=== PATIENT | female | born 1935 | race Caucasian/White ===

== ENCOUNTER 2018-02-02 08:47 | Emergency (ER) | payer MEDICARE, OTHER ==
[~2018-02-02] VITALS: Ht 165.1 cm; Wt 83.7 kg
[~2018-02-02 08:47] MED LIST: ACETAMINOPHEN650 M5 PO; ADULT LOW DOSE81 MG PO; AMLODIPINE BESYL5 M1 PO; APAP650 PO; ARIXTRA SUBQ; ASPIRIN EC325 M1 PO; ASPIRIN325; B12 IJ; B12INJ IM; CALCIUM + VITA1 EACH PO; CALCIUM 600 +1 EA11 PO; CARVEDILOL3.125 MG PO; CEFPODOXIME PR100 MG PO; CENTRUM SILVER1 EAC3 PO; CEPHALEXIN 500500 M3 PO; CIPROFLOXACIN500 M1 PO; CLEOCIN HCL150 MG PO; CO Q-10100 MG PO; COLACE100 MG PO; CRESTOR10 MG PO; DEMADEX20 MG PO; DEPO-MEDRO80 MG/1 ML IM; DIOVAN; DIOVAN 80 MG TA80 M1 PO; DIOVAN40 MG PO; DOXYCYCLINE 10100 MG PO; ELEMENTAL CALC600 MG PO; FISH OIL + VIT1 EACH PO; FISH OIL 1,0001 EAC5 PO; FISHOIL; GABAPENTIN 100100 MG PO; GLUCOPHAGE1000 MG PO; GLUCOSAMINE &1 EACH PO; HUMALOG100 UNIT/1 SQ; KEFLEX500 MG PO; LANTUS INJECTION; LANTUS SUBQ; LASIX 20 MG TAB20 MG PO; LASIX 40 MG TAB40 M1 GT; LASIX 40 MG TAB40 MG PO; LIDODERM 5%1 PATC1 TOP; MACRODANTIN100 MG PO; MAGNESIUM OXID400 MG PO; MAGNESIUM250 M1 PO; MAGOX 400400 MG PO; MAXZIDE 75-501 EACH PO; MECLIZINE HCL25 M1 PO; METOPROLOL SUCC25 M1 PO; METROGEL-VAGINA70 GM VG; METROGEL55 GM TOP; METROGEL60 GM TOP; METROGEL60 GM TP; MIRALAX255 GM PO; NEPHROCAPS SOFT1 CAP PO; NEURONTIN 300300 M1 PO; NEXIUM40 MG PO; NITROQUICK0.4 MG SL; NITROSTAT0.4 MG SUBLING; NORVASC5 MG PO; NOVOLOG100 UNIT/1 SUBQ; NYAMYC15 GM TOP; ORACEA40 MG PO; OXYCODONE HCL15 MG PO; OXYIR 5 MG CAPSU5 M1 PO; PERCOCET 5-3251 EACH PO; PLAVIX 75 MG TA75 M1; PLAVIX 75 MG TA75 M1 PO; PLAVIX 75 MG TA75 MG PO; POTASSIUM; POTASSIUM20 PO; PROPRANOLOL; PROTONIX40 M2 PO; PYRIDIUM200 MG PO; TOPROL XL25 MG PO; TRICOR145 MG PO; ULTRAM 50MG TAB50 MG PO; VITAMIN D1000 UNI1 PO; VITAMIN E1000 UNI3 PO; VITAMINC500 PO; ZETIA10 MG; ZETIA10 MG PO
[2018-02-02] MEDS ORDERED: ASPIRIN325 PO (09:03)
[2018-02-02] MEDS ORDERED: ORACEA40 MG PO (09:03)
[2018-02-02] MEDS ORDERED: TYLENOL325 MG PO (09:04)
[2018-02-02 09:21] LABS: URINE BILIRUBIN NEGATIVE (Negative); URINE BLOOD NEGATIVE (Negative); URINE CLARITY CLEAR; URINE COLOR YELLOW; URINE GLUCOSE-RANDOM NEGATIVE (Negative); URINE KETONES NEGATIVE (Negative); URINE LEUKOCYTES-REFLEX 1+ (Negative); URINE NITRITE-REFLEX NEGATIVE (Negative); URINE PROTEIN 2+ (Negative); URINE SPECIFIC GRAVITY 1.025 (1.005-1.030); URINE UROBILINOGEN 0.2 E.U./dl (0.2-1.0)
[2018-02-02 09:21] LABS: ABSOLUTE EOSINOPHILS 0.2 thou/uL (0.0-0.7); ABSOLUTE LYMPHOCYTES 1.3 thou/uL (0.8-5.3); ABSOLUTE MONOCYTES 0.5 thou/uL (0.0-1.2); ABSOLUTE NEUTROPHILS 3.7 thou/uL (1.6-8.1); BASOPHILS 0.8 %; EOSINOPHILS 2.7 %; HEMATOCRIT 42.7 % (37.0-47.0); HEMOGLOBIN 14.2 gm/dL (12.0-15.0); LYMPHOCYTES 23.2 %; MCH 29.2 pg (26.0-34.0); MCHC 33.1 g/dL (28.0-37.0); MCV 88.1 fL (80.0-100.0); MONOCYTES 8.7 %; MPV 8.1 fl. (7.2-11.1); NUCLEATED RBCS 0 /100WBC; PLATELET COUNT* 219 thou/uL (150-400); POLYS 64.6 %; RBC 4.85 mil/uL (4.20-5.00); RDW-CV 14.8 % (10.5-14.5); WBC 5.8 thou/uL (4.0-11.0)
[2018-02-02 09:34] LABS: ANION GAP 8 mmol/L (7-16); BUN 15 mg/dL (7-18); CALCIUM 10.1 mg/dL (8.5-10.1); CHLORIDE 107 mmol/L (98-107); CO2 27 mmol/L (21-32); CREATININE 0.9 mg/dL (0.6-1.3); GLUCOSE 110 mg/dL (70-99); POTASSIUM 4.1 mmol/L (3.5-5.1); SODIUM 142 mmol/L (136-145)
[2018-02-02 09:35] LABS: SQUAMOUS NONE SEEN /LPF (0-3)
[2018-02-02 09:36] LABS: BACTERIA-REFLEX None Seen /HPF (None Seen); CASTS None Seen /LPF (None Seen); MUCUS None Seen strn/LPF (None Seen); URINE RBC None Seen /HPF (0-2); URINE WBC-REFLEX None Seen /HPF (0-5)
[2018-02-02 09:37] LABS: CRYSTALS None Seen /LPF (None Seen)
[2018-02-02 09:41] LABS: ALBUMIN 3.6 g/dL (3.4-5.0); ALKALINE PHOSPHATASE 93 U/L (46-116); LIPASE 87 U/L (73-393); SGOT 31 U/L (15-37); SGPT 26 U/L (30-65); TOTAL BILIRUBIN 0.6 mg/dL (<0.1-1.0); TOTAL PROTEIN 6.5 g/dL (6.4-8.2); TROPONIN-I LEVEL <0.06 ng/mL (<0.06)
[2018-02-02] MEDS ORDERED: HYDROCODONE-AP1 EAC6 PO (12:16)
[2018-02-02] MEDS ORDERED: KEFLEX500 M1 PO (12:16)
[2018-02-02 12:31] VITALS: BP 164/66
--- NOTE | 2018-02-04 11:10 | EKG ---
[place] [address] ELECTROCARDIOGRAM REPORT Name: DORIAN NEGRETE Room: [facility]#: [id number] Admission: 02/02/18 Attend Phys: Discharge: 02/02/18 Date of : 39 Report #: [id number] THIS REPORT FOR: //name// [facility] ED Test Date: 2018-02-02 Test Time: 09:15:21 Pat Name: DORIAN NEGRETE Department: Room: Gender: F Coal Passer: Truong DICKINSON : 1935 Requested By: Darryn Quevedo Order Number: [id number] MD: Jaylen Beck Measurements Intervals [place] Rate: 50 P: -3 AK: 247 QRS: -46 QRSD: 119 T: 38 QT: 478 QTc: 436 Interpretive Statements Sinus rhythm Prolonged AK interval Left anterior fascicular block Left ventricular hypertrophy Anterior infarct, old Compared to ECG 04/27/2016 11:07:00 First degree AV block now present Left anterior fascicular block now present Early repolarization no longer present Myocardial infarct finding still present Electronically Signed On 02-04-2018 11:09:48 COMMUNITY HEALTH PROGRAM REPRESENTATIVE by Jaylen Beck [email or web address] <ELECTRONICALLY SIGNED> By: Jaylen Beck MD, FACC 02/04/18 1109 4 4 Jaylen Beck MD, FACC /EPI
== END 2018-02-02 12:31 | disposition home or self-care (01) ==
LOC: M.ERS 08:47
PROVIDERS: Emergency Medicine Emergency Medical Services
DX: M54.5 Low back pain (principal); Z88.5 Allergy status to narcotic agent; Z88.2 Allergy status to sulfonamides; Z88.8 Allergy status to other drugs, medicaments and biological substances; Z90.49 Acquired absence of other specified parts of digestive tract; Z90.710 Acquired absence of both cervix and uterus; Z86.73 Personal history of transient ischemic attack (TIA), and cerebral infarction without residual deficits

== ENCOUNTER 2019-03-19 11:45 | Inpatient (IN) | payer MEDICARE, OTHER ==
[~2019-03-19] VITALS: Ht 152.4 cm; Wt 87.5 kg
[~2019-03-19 11:45] MED LIST changes: +ASPIRIN325 PO; +HYDROCODONE-AP1 EAC6 PO; +KEFLEX500 M1 PO; -LIDODERM 5%1 PATC1 TOP; +LIDODERM1 EACH TOP; +MAGNESIUM OXID400 M2 PO; -MAGNESIUM OXID400 MG PO; -PROPRANOLOL; +PROPRANOLOL PO; +TYLENOL325 MG PO; -ZETIA10 MG
[2019-03-19 12:00] VITALS: BP 164/71
[2019-03-19 14:10] LABS: ABSOLUTE EOSINOPHILS 0.1 thou/uL (0.0-0.7); ABSOLUTE LYMPHOCYTES 1.3 thou/uL (0.8-5.3); ABSOLUTE MONOCYTES 0.4 thou/uL (0.0-1.2); ABSOLUTE NEUTROPHILS 2.3 thou/uL (1.6-8.1); BASOPHILS 0.7 %; EOSINOPHILS 2.5 %; HEMATOCRIT 36.7 % (37.0-47.0); HEMOGLOBIN 12.9 gm/dL (12.0-15.0); LYMPHOCYTES 31.6 %; MCHC 35.2 g/dL (28.0-37.0); MCV 88.1 fL (80.0-100.0); MONOCYTES 9.7 %; MPV 8.4 fl. (7.2-11.1); NUCLEATED RBCS 0 /100WBC; PLATELET COUNT* 169 thou/uL (150-400); POLYS 55.5 %; RBC 4.17 mil/uL (4.20-5.00); RDW-CV 14.4 % (10.5-14.5); WBC 4.2 thou/uL (4.0-11.0)
[2019-03-19 14:18] LABS: CALCIUM 9.7 mg/dL (8.5-10.1); CREATININE 1.1 mg/dL (0.6-1.3); POTASSIUM 4.1 mmol/L (3.5-5.1); PROTIME 9.9 Seconds (9.20-11.50)
[2019-03-19 14:23] LABS: ALBUMIN 2.9 g/dL (3.4-5.0); TOTAL BILIRUBIN 0.3 mg/dL (<0.1-1.0); TOTAL PROTEIN 5.5 g/dL (6.4-8.2)
--- NOTE | 2019-03-19 14:47 | NUR ---
LAKISHA NOTIFIED UPON PT RETURN FROM CT. PT CONNECTED TO MONITOR
--- NOTE | 2019-03-19 16:14 | EKG ---
[place] [address] ELECTROCARDIOGRAM REPORT Name: CAROLEE NEGRETEANE Felipe Room: [facility]#: [id number] Admission: 03/19/19 Attend Phys: Discharge: Date of : 39 Report #: [id number] THIS REPORT FOR: //name// [facility] ED Test Date: 2019-03-19 Test Time: 14:07:05 Pat Name: DORIAN NEGRETE Department: Room: Gender: F Forensic Psychiatrist: : 1935 Requested By: Marcelo Taylor Order Number: [id number] MD: Wesley Grande Measurements Intervals [place] Rate: 52 P: 3 SD: 260 QRS: -46 QRSD: 119 T: 44 QT: 478 QTc: 445 Interpretive Statements Sinus bradycardia Prolonged SD interval Left anterior fascicular block Left ventricular hypertrophy Anterior infarct, old Compared to ECG 02/02/2018 09:15:21 No significant changes Electronically Signed On 03-19-2019 16:14:06 FINANCIAL REPORT SERVICE SALES AGENT by Wesley Grande [email or web address] <ELECTRONICALLY SIGNED> By: Wesley Grande MD, [facility] 03/19/19 1614 06 06 Wesley Grande MD, FACC /EPI
[2019-03-19 16:55] VITALS: BP 165/54
[2019-03-19 17:30] VITALS: BP 182/72
[2019-03-19] MEDS ORDERED: MACRODANTIN100 MG PO (18:07)
--- NOTE | 2019-03-19 18:46 | NUR ---
PT ADMITTED TO TELE FLOOR FROM ER ACCOMPANIED BY ER NURSE. PT IS AOX4. PT SBP IS 182. NO COMPLAINT, ASYMPTOMATIC. PT STATES THAT SHE HAS TAKEN HER BP PILLS THIS AM. COMPLAINS OF TINGLING AND NUMBNESS IN RIGH TLOWER EXTREMITY. BILATERAL LOWER EXTREMITIES ARE SWOLLEN ( PITTING EDEMA +3). PULSE PALPABLE IN ALL ECTREMITIES. LUNG SOUNDS ARE CLEAR. NO FURTHER COMPLAINT. CALL LIGHT AT REACH. MEDICATION RECEONCILIATION DONE. UP WITH STAND BY ASSIST TO RESTROOM. ACCUCHECK.
[2019-03-19 19:40] VITALS: BP 163/50
[2019-03-20] VITALS: BP 142/52
[2019-03-20 04:00] VITALS: BP 140/48
[2019-03-20 07:55] VITALS: BP 160/47
--- NOTE | 2019-03-20 11:00 | NUR ---
MET WITH PT AND SPOUSE TO DISCUSS HOME SITUATION/DC PLANNING. PT LIVES WITH SPOUSE. PT IS NORMALLY ABLE TO DO HER OWN ADL'S. SPOUSE ASSISTS NEEDED. PT USES WALKER. SPOUSE DOES DRIVING AND IADLS AROUND THE HOUSE. PT HAS HAD HH IN PAST. DENIES ANY DC NEEDS AT THIS TIME. WILL FOLLOW
[2019-03-20 13:07] VITALS: BP 156/58
--- NOTE | 2019-03-20 14:31 | NUR ---
WOUND NURSE: PATIENT WITH 2 PLUS PITTING EDEMA IN BILATERAL LOWER LEGS AND FEET. APPLIED SINGLE LAYER SIZE E TUBIGRIPS TOES TO KNEE TO BLE WHICH WERE TOLERATED WELL BY THE PATIENT. RECOMMENDED TO PATIENT TO WEAR DAILY WHEN OUT OF BED. MAY REMOVE AT HS AND REAPPLY EACH AM. PATIENT STATES SHE UNDERSTANDS. ENCOURAGED TO ELEVATE BLE ABOVE HEART MUCH POSSIBLE AND TOLERATED. PATIENT STATED SHE UNDERSTOOD.
--- NOTE | 2019-03-20 17:51 | NUR ---
PATIENT HAD MRI OF HEAD AN SPINE THIS AM PER NEURO. CYMBALTA STARTED THIS EVENING BY NEURO AND PER DR. RUSSO START PREDNISONE DOSE FOR MRI RESULTS. IV REMAINS SL, FLUSHING WITHOUT DIFFICULTY. WET END HELPER TRACING SB, DR. RUSSO NOTIFIED THAT PROPRANOLOL HELD THIS AM FOR BRADYCARDIA ALL SHIFT. MEDICATION DC'D AND PATIENT AWARE. SAMUEL FROM WOUND CARE SAW PATIENT THIS AFTERNOON, TUBAGRIPS PLACED TO BLE'S. NO COMPLAINTS OF PAIN THIS SHIFT. FAMILY AT BEDSIDE TODAY.
[2019-03-20 18:43] VITALS: BP 173/73
[2019-03-20 20:00] VITALS: BP 108/60
[2019-03-21] VITALS: BP 124/64
[2019-03-21 04:00] VITALS: BP 144/56
--- NOTE | 2019-03-21 05:58 | NUR ---
VSS. SEE MAR. SEE CHARTING. PROGRESSING TOWARDS GOALS. FALL PRECAUTIONS IN PLACE. HOURLY ROUNDING FOR SAFETY.
[2019-03-21 08:00] VITALS: BP 153/60
[2019-03-21 12:00] VITALS: BP 166/61
[2019-03-21] MEDS ORDERED: DULOXETINE HCL30 MG PO (13:41)
[2019-03-21] MEDS ORDERED: RAYOS5 MG PO (13:43)
[2019-03-21 13:45] VITALS: BP 166/61
== END 2019-03-21 14:36 | disposition home or self-care (01) | DRG 552 ==
LOC: M.ERS 11:45 → M.TBA-ER 16:16 → M.2W 16:16 → M.TBA-ER 16:16 → M.2W 17:14
PROVIDERS: Emergency Medicine; ADMIT Internal Medicine
DX: M48.02 Spinal stenosis, cervical region (principal); M54.16 Radiculopathy, lumbar region; G89.29 Other chronic pain; M54.9 Dorsalgia, unspecified; I25.10 Atherosclerotic heart disease of native coronary artery without angina pectoris; Z96.659 Presence of unspecified artificial knee joint; E89.0 Postprocedural hypothyroidism; Z90.710 Acquired absence of both cervix and uterus; Z95.2 Presence of prosthetic heart valve; Z86.73 Personal history of transient ischemic attack (TIA), and cerebral infarction without residual deficits; I25.2 Old myocardial infarction; Z88.6 Allergy status to analgesic agent; Z90.49 Acquired absence of other specified parts of digestive tract; Z88.2 Allergy status to sulfonamides; Z88.8 Allergy status to other drugs, medicaments and biological substances

== ENCOUNTER 2019-07-10 08:21 | Emergency (ER) | payer MEDICARE, OTHER ==
[~2019-07-10] VITALS: Ht 165.1 cm; Wt 83.9 kg
[~2019-07-10 08:21] MED LIST changes: +DULOXETINE HCL30 MG PO; +RAYOS5 MG PO
[2019-07-10] MEDS ORDERED: NORCO 5-325 TA1 EAC1 PO (09:47)
[2019-07-10 09:58] VITALS: BP 150/96
== END 2019-07-10 09:59 | disposition home or self-care (01) ==
LOC: M.ERS 08:21
DX: S86.811A Strain of other muscle(s) and tendon(s) at lower leg level, right leg, initial encounter (principal); Z90.49 Acquired absence of other specified parts of digestive tract; Z90.710 Acquired absence of both cervix and uterus; Z96.651 Presence of right artificial knee joint; Z86.73 Personal history of transient ischemic attack (TIA), and cerebral infarction without residual deficits; Z88.2 Allergy status to sulfonamides; Z88.6 Allergy status to analgesic agent; Z88.8 Allergy status to other drugs, medicaments and biological substances; X58.XXXA Exposure to other specified factors, initial encounter; Y93.89 Activity, other specified; Y92.89 Other specified places as the place of occurrence of the external cause; Y99.8 Other external cause status

== ENCOUNTER 2019-08-08 11:19 | Inpatient (IN) | payer MEDICARE, OTHER ==
[~2019-08-08] VITALS: Ht 165.1 cm; Wt 79.4 kg
--- NOTE | ~2019-08-08 | EMS ---
[place] [address] EMS Patient Care Report Name: DORIAN NEGRETE Room: [facility]#: [id number] Admission: 08/08/19 Attend Phys: Discharge: Date of : 39 Report #: [id number] THIS REPORT FOR: //name// Report Transmitted: 08/08/2019 11:52 EMS Care Summary [facility] Incident [phone] @ 08/08/2019 10:20 [address] [place] [address] Patient DORIAN NEGRETE Female, 84 Years 1935 Patient Address [address] [place] [address] Patient History Congestive Heart Failure (CHF),Diabetes,TIA,Coronary Artery Bypass Graft (CABG),Edema,Myocardial Infarction (MS), Patient Allergies Codeine,Sulfur allergy, Patient Medications Novolog, Lantus, Crestor, Zetia, Propranolol, Nitroglycerin, Plavix, Amlodipine, Aspirin, Protonix, Diovan, Oracea, Neurontin, Torsemide, Potassium, Lidocaine, Chief Complaint Nausea/Vomiting & Weakness Disposition Transported No Lights/[place] Dispatch Reason Sick Person Transported To [facility] Narrative Upon EMS arrival the patient was lying left lateral rec[place] [address] EMS Patient Care Report Name: DORIAN NEGRETE Room: [facility]#: [id number] Admission: 08/08/19 Attend Phys: Discharge: Date of : 39 Report #: [id number] bedroom of the residence, A&Ox4 GCS 14 with a c/c of nausea/vomiting and inability to eat or drink for the last 24 hours. The patient's and daughter were present on the scene. The patient stated that she has not been feeling well and that she hasn't been able to eat or drink at all. The patient's skin was hot to the touch and the patient kept complaining that she was cold. The patient was oriented to self and place only. The patient's daughter stated that she has been having issues with her memory lately but it is much worse than normal. The patient's daughter stated that the patient is 3 weeks post op from a femur fracture repair surgery and that the patient had a titanium robert placed in her right leg. The patient's incisions appeared to be clean with no signs of redness or infection. The patient's lower left leg appeared slightly red and hot to the touch. The patient had bilateral pitting edema in her lower extremities and complained of pain on palpation. The patient was transferred from the bed to the cot, secured with straps and rails raised. The patient was loaded into the ambulance for transport. The patient was attached to the cardiac specialist and vitals were assessed. The patient was found to be hypertensive and tachycardic. The patient denied any SOA or chest pain. The patient's temperature was 100.1 deg F when tested by EMS. A 20 gauge IV was started in the patient's right hand but the attempt was unsuccessful. The patient had no other options for viable venous access. The patient's blood glucose was tested and found to be 188. The patient stated her concern that her glucose was too high but she was unable to remember what her glucose normally is. A 12 lead EKG was performed and showed no signs of acute MS. The patient was in sinus tachycardia with a borderline 1st degree heat block. The patient's vitals and condition were monitored throughout transport. The patient's overall condition remained unchanged. The patient denied any additional complaints en route. Initial Vitals @10:56P: 95,R: 18,BP: 186/72,GCS: 14,Temp: 100.1F,Glucose: 188,SpO2: 99,Revised Trauma: 12, [place] [address] EMS Patient Care Report Name: DORIAN NEGRETE Room: [facility]#: [id number] Admission: 08/08/19 Attend Phys: Discharge: Date of : 39 Report #: [id number] @10:39P: 95,R: 18,BP: 218/95,GCS: 14,Temp: 100.1F,SpO2: 97,Revised Trauma: 12, @10:41P: 95,R: 18,BP: 212/86,GCS: 14,Temp: 100.1F,SpO2: 97,Revised Trauma: 12, @11:14P: 91,R: 18,BP: 182/102,GCS: 14,Temp: 100.1F,Glucose: 188,SpO2: 98,Revised Trauma: 12, Assessments @10:29MENTAL:Confused,Person Oriented,Place Oriented,SKIN:Hot,HEENT:Head/Face: No Abnormalities,Neck/Airway: No Abnormalities,LUNG SOUNDS:General: Vomiting,ABDOMEN:General: Vomiting,PELVIS//GI:No Abnormalities,EXTREMITIES:Left Leg: Edema,Right Leg: Weakness,Right Leg: Other,Right Leg: Edema,Left Arm: No Abnormalities,Right Arm: No Abnormalities,PULSE:NEURO:No Abnormalities, Impression Sepsis/Septicemia Procedures @10:4612-Lead ECGResponse: UnchangedSucceeded@10:47 cc (20 ga) Site: Hand-RightResponse: WorseFailed Timeline 10:17,Call Received 10:20,Dispatched 10:23,En Route 10:27,On Scene 10:28,At Patient 10:39,BP: 218/95 M,PULSE: 95,RR: 18 R,SPO2: 97 Ox,ETCO2: ,BG: ,PAIN: ,GCS: 14, 10:41,BP: 212/86 M,PULSE: 95,RR: 18 R,SPO2: 97 Ox,ETCO2: ,BG: ,PAIN: ,GCS: 14, 10:46,12-Lead ECG,Response: UnchangedSucceeded, 10:47, cc 20 ga Site: Hand-Right,Response: WorseFailed, 10:51,Depart Scene 10:56,BP: 186/72 M,PULSE: 95,RR: 18 R,SPO2: 99 Ox,ETCO2: ,B,PAIN: ,GCS: 14, 11:14,At Destination 11:14,BP: 182/102 M,PULSE: 91,RR: 18 R,SPO2: 98 Ox,ETCO2: ,B,PAIN: ,GCS: 14, 11:15,Transfer Patient 11:45,Call Closed Disclaimer v1.1 Copyright 2020 [employer] This EMS Care Summary contains data elements from the applicable legal record (which may be displayed differently). It is designed to provide pertinent information for the following purposes: continuity of care, clinical quality, and state data reporting. The complete legal record is available to ED staff and administrators of the receiving hospital in [employer] Patient [place] [address] EMS Patient Care Report Name: DORIAN NEGRETE [facility] [id number] Admission: 08/08/19 Attend Phys: Discharge: Date of : 39 Report #: [id number] is provided "as is."
[~2019-08-08 11:19] MED LIST changes: +NORCO 5-325 TA1 EAC1 PO
[2019-08-08 11:20] VITALS: BP 193/107
[2019-08-08 11:47] LABS: ABSOLUTE LYMPHOCYTES 0.9 thou/uL (0.8-5.3); ABSOLUTE MONOCYTES 0.3 thou/uL (0.0-1.2); ABSOLUTE NEUTROPHILS 3.9 thou/uL (1.6-8.1); EOSINOPHILS 0.2 %; HEMATOCRIT 36.1 % (37.0-47.0); HEMOGLOBIN 12.4 gm/dL (12.0-15.0); LYMPHOCYTES 18.3 %; MCHC 34.3 g/dL (28.0-37.0); MCV 87.5 fL (80.0-100.0); MONOCYTES 4.9 %; MPV 8.2 fl. (7.2-11.1); NUCLEATED RBCS 0 /100WBC; PLATELET COUNT* 272 thou/uL (150-400); POLYS 75.6 %; RBC 4.12 mil/uL (4.20-5.00); RDW-CV 14.5 % (10.5-14.5); WBC 5.1 thou/uL (4.0-11.0)
[2019-08-08 11:53] LABS: BE -1.5 mmol/L (-2 to +3); PO2 105.8 mmHg (75.0-100.0); pH 7.489 (7.340-7.450)
[2019-08-08 11:54] LABS: CALCIUM 9.9 mg/dL (8.5-10.1); CREATININE 0.9 mg/dL (0.6-1.3); POTASSIUM 3.7 mmol/L (3.5-5.1)
[2019-08-08 11:59] LABS: ALBUMIN 3.2 g/dL (3.4-5.0); MAGNESIUM 1.3 mg/dL (1.8-2.4); TOTAL BILIRUBIN 0.7 mg/dL (<0.1-1.0); TOTAL PROTEIN 6.2 g/dL (6.4-8.2)
[2019-08-08 12:19] LABS: URINE BILIRUBIN NEGATIVE (Negative); URINE BLOOD TRACE (Negative); URINE CLARITY CLEAR; URINE COLOR YELLOW; URINE GLUCOSE-RANDOM NEGATIVE (Negative); URINE KETONES 2+ (Negative); URINE LEUKOCYTES-REFLEX NEGATIVE (Negative); URINE NITRITE-REFLEX NEGATIVE (Negative); URINE PROTEIN 3+ (Negative); URINE UROBILINOGEN 0.2 E.U./dl (0.2-1.0)
[2019-08-08 12:36] LABS: SQUAMOUS 0-3 Few /LPF (0-3); URINE RBC 0-2 Rare /HPF (0-2); URINE WBC-REFLEX 0-5 Rare /HPF (0-5)
[2019-08-08 12:37] LABS: AMORPHOUS PHOSPHATES Few /LPF (None Seen); HYALINE CASTS 0-3 Few /LPF (None Seen); MUCUS 0-3 Light strn/LPF (None Seen)
[2019-08-08 12:46] LABS: APTT 24.6 Seconds (25.0-31.3); PROTIME 10.7 Seconds (9.20-11.50)
[2019-08-08 14:52] VITALS: BP 167/82
[2019-08-08 15:00] VITALS: BP 188/73
--- NOTE | 2019-08-08 17:49 | NUR ---
PATIENT ARRIVED TO [facility] PER CART FROM ER. PATIENT IS ALERT CONFUSED TO DATE,TIME AND SITUATION. PATIENT ASSISTED TO BED FROM CART WITH 2 PERSON ASSIST. SHE WAS VERY UNSTEADY AND TREMULOUS. LOW GRADE TEMP OF 99.1. IV FLUIDS STARTED. ATTEMPTED TO GIVE PATIENT PO MEDICATION THIS EVENING BUT SHE BECAME NAUSEATED AND VOMITED ABOUT 50 ML OF YELLOW FLUID. SHE VOIDED 150 ML LIGHT YELLOW URINE. STERI STRIPS PLACED IN 2 AREAS ON HER RIGHT LEG. NO DRAINAGE NOTED. WAS JUST INFORMED THAT PATIENT NEEDED TO BE SWABBED FOR COVID. PATIENT TO TRANSFER TO [facility]
--- NOTE | 2019-08-08 18:37 | NUR ---
REPORT GIVEN TO FELISHA FOR TRANSFER TO ISOLATION UNIT.
[2019-08-08 20:00] VITALS: BP 167/74
[2019-08-08 23:49] VITALS: BP 171/63
[2019-08-09 03:53] VITALS: BP 167/66
[2019-08-09 06:16] LABS: HEMATOCRIT 29.6 % (37.0-47.0); MCH 30.2 pg (26.0-34.0); MCHC 34.4 g/dL (28.0-37.0); MCV 87.8 fL (80.0-100.0); RBC 3.37 mil/uL (4.20-5.00); RDW-CV 14.7 % (10.5-14.5); WBC 4.6 thou/uL (4.0-11.0)
[2019-08-09 06:22] LABS: HEMOGLOBIN 10.2 gm/dL (12.0-15.0)
[2019-08-09 06:29] LABS: CREATININE 0.9 mg/dL (0.6-1.3); POTASSIUM 3.1 mmol/L (3.5-5.1)
--- NOTE | 2019-08-09 06:31 | NUR ---
ASSUMED PT CARE AT APPROX 1930. PT IS AWAKE AND ORIENTED X3-FORGETFUL, CONFUSED AT TIMES BUT EASILY REDIRECTABLE. PT IS TRACING SR w/1st DEGREE AVB ON THE RATTLING MACHINE TENDER. PT DENIES PAIN/DISCOMFORT. NAUSEA RELIEVED BY ZOFRAN GIVEN PER MAY. PT IS NOT IN DISTRESS. NO ACUTE CHANGES THROUGH THE NIGHT. CALL LIGHT WITHIN REACH. HOURLY ROUNDING DONE FOR PT SAFETY. HIGH FALL PRECAUTIONS IN PLACE.
[2019-08-09 06:39] LABS: ALBUMIN 2.5 g/dL (3.4-5.0); MAGNESIUM 2.2 mg/dL (1.8-2.4); TOTAL BILIRUBIN 0.5 mg/dL (<0.1-1.0)
[2019-08-09 08:30] VITALS: BP 121/60
[2019-08-09 12:00] VITALS: BP 138/65
[2019-08-09 16:00] VITALS: BP 173/57
--- NOTE | 2019-08-09 18:38 | NUR ---
I ASSUMED CARE OF THE PATIENT AT 0700. SHE IS AWAKE AND ALERT TO SITUATION AND PLACE, BUT UNAWARE OF TIME OR BIRTHDAY. BED IS IN THE LOW LOCKED POSITION AND CALL LIGHT IS IN REACH. HOURLY ROUNDING IS COMPLETED AND PATIENT NEEDS ARE MET. BED ALARM IS ON AND PATIENT IS TURNED EVERY 2 HOURS. IS CONTACTED. SHE HAD ZOFRAN BEFORE MEALS AND WAS ABLE TO EAT SOME LUNCH AND DINNER. SHE UTILIZED A BEDPAN DURING MY SHIFT. STERISTRIPS ARE WOOD HEEL FLAP INSERTER C/D/I. COVID IS STILL PENDING. BLOOD SUGAR IS MONITORED AND CONTROLLED BY DIET. WILL CONTINUE TO MONITOR.
[2019-08-10] VITALS: BP 161/58
--- NOTE | 2019-08-10 03:16 | NUR ---
ASSUMED CARE OF PT AT 1900. PT IS CONFUSED. VSS. PERDOUGIE. NO COMPLAINTS OF PAIN. PT HAS HAD A LOW FEVER. RECIEVED TYLENOL. PT IS IN SINUS BRADYCARDIA ON THE TELEMETRY. PT IS RESTING COMFORTABLY IN BED. RESPIRATIONS ARE EVEN AND NONLABORED. WILL CONTINUE TO MONITOR PT.
[2019-08-10 04:00] VITALS: BP 173/61
[2019-08-10 06:48] LABS: CALCIUM 9.8 mg/dL (8.5-10.1); MAGNESIUM 1.9 mg/dL (1.8-2.4); POTASSIUM 4.3 mmol/L (3.5-5.1)
[2019-08-10 11:25] VITALS: BP 165/53
--- NOTE | 2019-08-10 16:08 | NUR ---
SPOKE WITH PTS ON PHONE, PT.STILL SOMEWHAT CONFUSED. HE PLANS TO BRING HER HOME AT DISCHARGE. HE SAID THEIR DAUGHTER, OCTAVIO, IS STAYING AT THEIR HOME TO ASSIST PT. (PT.HAD FX FEMUR AND SURGERY ON 07/13 AT [facility]). SHE HAS WALKER,WC AND BATH BENCH. IS CURRENT WITH SPECIALIZED HOME CARE. HE WOULD LIKE TO CONTINUE WITH THEM AT DISCHARGE. SHE WAS GETTING ALONG GOOD AT HOME BEFORE SHE HAD A CHANGE IN HER MENTAL STATUS. IS NORMALLY ALERT AND ORIENTED. CM WILL FOLLOW FOR DISCHARGE.
--- NOTE | 2019-08-10 17:01 | EKG ---
[place] [address] ELECTROCARDIOGRAM REPORT Name: CAROLEE NEGRETEVIRGILIO Wang Room: [address] [place] .R.#: [id number] Admission: 08/08/19 Attend Phys: Devon Triana, Discharge: Date of : 39 Date of Service: 08/08/19 1126 Report #: [id number] THIS REPORT FOR: //name// [facility] ED Test Date: 2019-08-08 Test Time: 11:26:07 Pat Name: DORIAN NEGRETE Department: Room: [address] Gender: F Social Service Coordinator: : 1935 Requested By: Amina England Order Number: [id number] Joycelyn MD: Basil Soriano Measurements Intervals [place] Rate: 86 P: 25 LA: 224 QRS: -49 QRSD: 121 T: 80 QT: 407 QTc: 487 Interpretive Statements Sinus rhythm Prolonged [place] interval LVH with IVCD, LAD and secondary repol abnrm Borderline prolonged QT interval Compared to ECG 03/19/2019 14:07:05 Intraventricular conduction delay now present Early repolarization now present Sinus bradycardia no longer present Left anterior fascicular block no longer present Myocardial infarct finding no longer present Electronically Signed On 08-10-2019 16:59:49 CDT by Basil Soriano [email or web address] <ELECTRONICALLY SIGNED> By: Basil Soriano MD, [facility] 08/10/19 1659 1126 1126 Basil Soriano MD, [facility] /EPI
--- NOTE | 2019-08-10 19:00 | NUR ---
PATIENT PLEASANT AND COOPERATIVE W/ ASSESS AND CARES. ALERT AND ORIENTED TO SELF AND SITUATION. USING BEDPAN. IV SITE NOTED WNL. SEE MAR. DENIES PAIN/SOB. ISO PRECAUTIONS MAINTAINED. CALL LIGHT IN REACH. REORIENTED NEEDED. REPOSITIONS W/ MIN ASST. NO SKIN ISSUES NOTED. TELE NOTED.~TJRN
[2019-08-11] VITALS: BP 168/54
--- NOTE | 2019-08-11 03:16 | NUR ---
ASSUMED CARE OF PT AT 1900. PT IS CONFUSED TO TIME AND PLACE. VSS. PERRLA. NO COMPLAINTS OF PAIN. PT IS IN SINUS BRADYCARDIA ON THE TELEMETRY. PT IS RESTING COMFORTABLY IN BED. RESPIRATIONS ARE EVEN AND NONLABORED. WILL CONTINUE TO MONITOR PT.
[2019-08-11 04:00] VITALS: BP 149/70
[2019-08-11 05:16] LABS: HEMATOCRIT 32.1 % (37.0-47.0); HEMOGLOBIN 11.2 gm/dL (12.0-15.0); MCH 30.4 pg (26.0-34.0); MCV 86.9 fL (80.0-100.0); MPV 8.3 fl. (7.2-11.1); RBC 3.69 mil/uL (4.20-5.00); RDW-CV 14.8 % (10.5-14.5); WBC 4.4 thou/uL (4.0-11.0)
[2019-08-11 05:44] LABS: ALBUMIN 2.3 g/dL (3.4-5.0); CALCIUM 9.4 mg/dL (8.5-10.1); MAGNESIUM 1.4 mg/dL (1.8-2.4); POTASSIUM 3.8 mmol/L (3.5-5.1); TOTAL BILIRUBIN 0.4 mg/dL (<0.1-1.0); TOTAL PROTEIN 4.8 g/dL (6.4-8.2)
[2019-08-11 09:15] VITALS: BP 173/59
--- NOTE | 2019-08-11 19:00 | NUR ---
PATIENT PLEASANT AND COOPERATIVE W/ ASSESS AND CARES. PATIENT EMOTIONAL ABOUT WANTING TO GO HOME AND BE WITH HER . PATIENT REORIENTED TO CARES AND PLAN FREQUENTLY. PATIENT UP TO CHAIR FOR SUPPER MEAL W/ THERAPY ASST. CALL LIGHT IN REACH. IV SITE NOTED WNL. SEE MAR. PATIENT TRANSFERRED TO 102 AFTER COVID NEG TEST AND DR ORDER. TELE DISCONTINUED. PATIENT RESTING IN BED AT THIS TIME. CALL LIGHT IN REACH HRLY ROUNDS DONE. ISO PRECAUTIONS MAINTAINED IN COVID UNIT PRIOR TO TRANSFER. ~TJRN
[2019-08-11 19:30] VITALS: BP 166/75; BP 178/50
--- NOTE | 2019-08-12 04:40 | NUR ---
ASSUMED CARE FROM DAY SHIFT PT HAVE NO COMPLAINTS WHEN ASSESSED.DENIES N/V UP TO BSC VOIDING WITH SMEARS OF BROWN STOOL. RESTED WELL THROUGHOUT HOURLY ROUNDS, WILL CONITNUE WITH CURRENT PLAN OF CARE AND WILL REPORT CHANGES.
[2019-08-12] MEDS ORDERED: MACROBID 100 M100 M1 PO (07:53)
[2019-08-12] MEDS ORDERED: METRONIDAZOLE500 M4 PO (07:53)
[2019-08-12 08:00] VITALS: BP 168/92
[2019-08-12 09:52] VITALS: BP 171/58
--- NOTE | 2019-08-12 09:55 | NUR ---
PT.TO DISCHARGE HOME TODAY WITH HOME HEALTH. PT.CURRENT WITH [facility]. FAXED DISCHARGE SUMMARY TO [facility] [phone]. THEY WILL RESUME SERVICES TOMORROW.
[2019-08-12 10:48] VITALS: BP 171/58
== END 2019-08-12 11:30 | disposition home health service (06) | DRG 372 ==
LOC: M.ERS 11:19 → M.ORTHSURG 12:49 → M.TBA-ER 12:49 → M.ERS 14:53 → M.2W 15:07 → M.ORTHSURG 19:09
PROVIDERS: Family Medicine; Personal Emergency Response Attendant; ADMIT Internal Medicine
DX: A04.9 Bacterial intestinal infection, unspecified (principal); E44.1 Mild protein-calorie malnutrition; N12 Tubulo-interstitial nephritis, not specified as acute or chronic; I16.0 Hypertensive urgency; I25.10 Atherosclerotic heart disease of native coronary artery without angina pectoris; M19.90 Unspecified osteoarthritis, unspecified site; M79.7 Fibromyalgia; M85.80 Other specified disorders of bone density and structure, unspecified site; L71.9 Rosacea, unspecified; E11.9 Type 2 diabetes mellitus without complications; F03.90 Unspecified dementia, unspecified severity, without behavioral disturbance, psychotic disturbance, mood disturbance, and anxiety; K21.9 Gastro-esophageal reflux disease without esophagitis; E83.42 Hypomagnesemia; K44.9 Diaphragmatic hernia without obstruction or gangrene; I10 Essential (primary) hypertension; N28.1 Cyst of kidney, acquired; Z96.651 Presence of right artificial knee joint; Z20.828 Contact with and (suspected) exposure to other viral communicable diseases; I25.2 Old myocardial infarction; Z68.29 Body mass index [BMI] 29.0-29.9, adult; Z95.2 Presence of prosthetic heart valve; Z85.528 Personal history of other malignant neoplasm of kidney; Z79.82 Long term (current) use of aspirin; Z79.4 Long term (current) use of insulin; Z79.899 Other long term (current) drug therapy; Z88.5 Allergy status to narcotic agent; Z88.2 Allergy status to sulfonamides; Z88.8 Allergy status to other drugs, medicaments and biological substances; Z90.49 Acquired absence of other specified parts of digestive tract; Z90.710 Acquired absence of both cervix and uterus; Z85.820 Personal history of malignant melanoma of skin; Z98.42 Cataract extraction status, left eye; Z98.41 Cataract extraction status, right eye